=== PATIENT | female | born 1970 | race African-American/Black ===

== ENCOUNTER 2021-04-16 08:00 | Emergency (ER) | payer OTHER ==
[~2021-04-16] VITALS: Ht 162.6 cm; Wt 91.0 kg
[~2021-04-16 08:00] MED LIST: ALBU6.7H9 INH; BACL-141 PO; BUSP15TA3 PO; FERR325T6 PO; FLUO40CA49 PO; GABA800T97 PO; HYDR25TA PO; OLAN20TA34 PO; OMEP40CA12 PO; SIMV10TA97 PO; TRAZ150T78 PO
[2021-04-16] MEDS ORDERED: ONDANSETRON HCL 4MG/2ML INJ IV ONE (08:30)
[2021-04-16 08:44] LABS: BASOPHILS % 0.4 % (0.0-2.0); EOSINOPHILS % 1.2 % (0.0-5.0); HEMATOCRIT. 36.3 % (36.0-48.0); HEMOGLOBIN. 12.7 g/dL (12.0-16.0); LYMPHOCYTES % 17.7 % (20.0-50.0); MEAN CORPUSCULAR HEMOGLOBIN 30.4 pg (28.0-32.0); MEAN CORPUSCULAR VOLUME 86.9 fL (81.0-99.0); MEAN PLATELET VOLUME 7.1 fl (7.4-10.4); MONOCYTES % 4.5 % (2.0-8.0); NEUTROPHILS % 76.2 % (40.0-76.0); PLATELET 353 x1000/uL (130-400); RED BLOOD CELL COUNT 4.17 mill/uL (4.2-5.4); RED CELL DISTRIBUTION WIDTH 14.2 % (11.6-14.6)
[2021-04-16 08:47] LABS: CHLORIDE 88 mEq/L (98-107)
[2021-04-16] MEDS ORDERED: ALBUTEROL (0.083%) 2.5MG/3ML NEB HHN STA (08:47)
[2021-04-16] MEDS ORDERED: MORPHINE SULFATE 4 MG/ML CPJ (NOT FOR IM USE) IV STA (08:47)
[2021-04-16 08:57] VITALS: BP 118/72
[2021-04-16] MEDS ORDERED: POTASSIUM CHLORIDE 20MEQ TABLET SR PO ONE (09:30)
[2021-04-16] MEDS ORDERED: ONDA4TAB5 PO (10:07)
[2021-04-16] MEDS ORDERED: TOPUD PO (10:07)
[2021-04-16] MEDS ORDERED: POTA-9 PO (10:07)
== END 2021-04-16 10:39 | disposition home or self-care (01) ==
LOC: ER 08:00
DX: E87.6 Hypokalemia (principal); F17.290 Nicotine dependence, other tobacco product, uncomplicated; F12.10 Cannabis abuse, uncomplicated; I10 Essential (primary) hypertension; J44.1 Chronic obstructive pulmonary disease with (acute) exacerbation; Z79.899 Other long term (current) drug therapy
CPT/HCPCS: 36415; 74176; 80053; 83690; 85025; 94640; 96374; 96375; 99284; 99406; J2270; J2405; Z7610

== ENCOUNTER 2021-04-25 08:41 | Emergency (ER) | payer OTHER ==
[~2021-04-25] VITALS: Ht 162.6 cm; Wt 90.0 kg
[~2021-04-25 08:41] MED LIST changes: +ONDA4TAB5 PO; +POTA-9 PO; +TOPUD PO
[2021-04-25] MEDS ORDERED: IBUP-2029 MT (09:07)
[2021-04-25] MEDS ORDERED: IBUPROFEN 600MG TABLET PO ONE (09:15)
[2021-04-25 09:37] VITALS: BP 122/78
== END 2021-04-25 09:37 | disposition home or self-care (01) ==
LOC: ER 08:41
DX: G89.29 Other chronic pain (principal); M25.562 Pain in left knee; I10 Essential (primary) hypertension; J44.9 Chronic obstructive pulmonary disease, unspecified; F12.10 Cannabis abuse, uncomplicated
CPT/HCPCS: 99283; L1830